=== PATIENT | male | born 1965 | race Caucasian/White ===

== ENCOUNTER 2017-10-28 01:42 | Emergency (ER) | payer MEDICAID ==
[~2017-10-28] VITALS: Ht 177.8 cm; Wt 136.1 kg
[~2017-10-28 01:42] MED LIST: ALBUTEROL SULFAT4 MG PO; ALBUTEROL SULFATE PO; ALDACTONE25 MG PO; ASPIR 8181 MG PO; CARDIZEM CD240 MG PO; CARVEDILOL12.5 MG PO; COREG6.25 MG PO; COZAAR 25 MG TA25 M2 PO; COZAAR 50 MG TA50 M2 PO; DIGOXIN250 MCG; DIGOXIN250 MCG PO; GLYBURIDE 2.52.5 MG PO; HYDROCODON-ACE1 EAC7 PO; HYDROCODONE-AP1 EAC6 PO; KLOR-CON 1010 MEQ PO; LASIX 20 MG TAB20 MG PO; LASIX 40 MG TAB40 M2 PO; LIPITOR10 MG PO; LISINOPRIL5 MG PO; METOLAZONE 5 MG5 MG PO; NEURONTIN 300300 M1 PO; PACERONE 200 M200 M1 PO; PREDNISONE 10 M10 MG PO; SENOKOT-S TABL1 EACH PO; SPIRONOLACTONE25 M1 PO; TOPROL XL100 MG PO; VENTOLIN HFA 1818 GM INH; VENTOLIN HFA 1818 GM PO; VENTOLIN HFA INH8 GM INH; VOSPIRE INH; XARELTO20 MG PO
[2017-10-28 02:08] LABS: HEMATOCRIT 47.7 % (42.0-52.0); HEMOGLOBIN 16.2 gm/dL (14.0-18.0); MCH 33.2 pg (26.0-34.0); MCV 97.5 fL (80.0-100.0); MPV 9.4 fl. (7.2-11.1); NUCLEATED RBCS 0 /100WBC; PLATELET COUNT* 225 thou/uL (150-400); RDW-CV 14.5 % (10.5-14.5)
[2017-10-28 02:18] LABS: CALCIUM 8.9 mg/dL (8.5-10.1); CREATININE 1.1 mg/dL (0.6-1.3); POTASSIUM 3.8 mmol/L (3.5-5.1)
[2017-10-28 02:22] LABS: TOTAL BILIRUBIN 0.3 mg/dL (<0.1-1.0)
[2017-10-28 03:10] LABS: ABSOLUTE BASOPHILS 0.1 thou/uL (0.0-0.2); ABSOLUTE EOSINOPHILS 0.5 thou/uL (0.0-0.7); ABSOLUTE LYMPHOCYTES 1.7 thou/uL (0.8-5.3); ABSOLUTE MONOCYTES 1.3 thou/uL (0.0-1.2); ABSOLUTE NEUTROPHILS 8.4 thou/uL (1.6-8.1); ANISOCYTOSIS Occasional; PLATELET ESTIMATE ADEQUATE
[2017-10-28 03:11] LABS: TOXIC GRANULATION 1+
[2017-10-28 03:23] LABS: URINE BILIRUBIN NEGATIVE (Negative); URINE BLOOD NEGATIVE (Negative); URINE CLARITY CLEAR; URINE COLOR YELLOW; URINE GLUCOSE-RANDOM 3+ (Negative); URINE KETONES NEGATIVE (Negative); URINE LEUKOCYTES-REFLEX NEGATIVE (Negative); URINE NITRITE-REFLEX NEGATIVE (Negative); URINE PROTEIN NEGATIVE (Negative); URINE SPECIFIC GRAVITY 1.015 (1.005-1.030); URINE UROBILINOGEN 0.2 E.U./dl (0.2-1.0)
[2017-10-28 03:31] LABS: AMP/METHAMP Negative (Negative); BARBITURATES Negative (Negative); BENZODIAZEPINES Negative (Negative); COCAINE Negative (Negative); METHADONE Negative (Negative); OPIATES Negative (Negative); PCP Negative (Negative); THC Negative (Negative)
[2017-10-28] MEDS ORDERED: NORCO 10-325 T1 EACH PO (04:31)
[2017-10-28 04:50] VITALS: BP 141/67
== END 2017-10-28 04:51 | disposition home or self-care (01) ==
LOC: M.ERS 01:42
PROVIDERS: Emergency Medicine
DX: K42.9 Umbilical hernia without obstruction or gangrene (principal); I48.91 Unspecified atrial fibrillation; I10 Essential (primary) hypertension; G47.30 Sleep apnea, unspecified; E78.5 Hyperlipidemia, unspecified; Z95.0 Presence of cardiac pacemaker; F17.210 Nicotine dependence, cigarettes, uncomplicated; Z88.8 Allergy status to other drugs, medicaments and biological substances

== ENCOUNTER 2017-10-28 17:51 | Inpatient (IN) | payer MEDICAID ==
[~2017-10-28] VITALS: Ht 177.8 cm; Wt 131.5 kg
[~2017-10-28 17:51] MED LIST changes: +NORCO 10-325 T1 EACH PO
[2017-10-28 18:05] VITALS: BP 109/70
[2017-10-28 18:44] LABS: ABSOLUTE BASOPHILS 0.2 thou/uL (0.0-0.2); ABSOLUTE EOSINOPHILS 0.4 thou/uL (0.0-0.7); ABSOLUTE LYMPHOCYTES 2.1 thou/uL (0.8-5.3); ABSOLUTE MONOCYTES 1.6 thou/uL (0.0-1.2); ABSOLUTE NEUTROPHILS 8.9 thou/uL (1.6-8.1); BASOPHILS 1.2 %; EOSINOPHILS 2.8 %; HEMATOCRIT 46.8 % (42.0-52.0); LYMPHOCYTES 16.3 %; MCH 33.3 pg (26.0-34.0); MCHC 34.2 g/dL (28.0-37.0); MCV 97.5 fL (80.0-100.0); MONOCYTES 12.5 %; MPV 9.3 fl. (7.2-11.1); NUCLEATED RBCS 0 /100WBC; PLATELET COUNT* 229 thou/uL (150-400); POLYS 67.2 %; RDW-CV 14.5 % (10.5-14.5); WBC 13.1 thou/uL (4.0-11.0)
[2017-10-28 18:50] LABS: CALCIUM 8.5 mg/dL (8.5-10.1); CREATININE 1.1 mg/dL (0.6-1.3)
[2017-10-28 18:55] LABS: ALBUMIN 2.9 g/dL (3.4-5.0); TOTAL BILIRUBIN 0.4 mg/dL (<0.1-1.0); TOTAL PROTEIN 6.8 g/dL (6.4-8.2)
[2017-10-28 19:41] VITALS: BP 121/89
[2017-10-28 19:50] VITALS: BP 156/92
--- NOTE | 2017-10-29 04:24 | NUR ---
PATIENT ARRIVED BY CART AT 1950 FROM ER IN STABLE CONDITION. ALERT AND ORIENTED X4. MEDICATED FOR PAIN X1 WITH PARTIAL EFFECT REPORTED. PHOTOS TAKEN OF SCROTAL ABCESS, DRESSING CHANGED, PACKING INTACT. VITALS STABLE. GIRL FRIEND AT BEDSIDE. WILL CONTINUE TO MONITOR.
[2017-10-29 08:00] VITALS: BP 146/87
--- NOTE | 2017-10-29 08:40 | NUR ---
Nutrition: consult for wound; pt admit with scrotal abcess, cellulitis. Pt reported good appetite, wants bigger portions. Wt fairly stable from 2017 wt hx 280-300 lb. Na and albumin lwo. Meds reviewed. Will order double portion of protein, fruits and vegetables. Low nutrition risk.
--- NOTE | 2017-10-29 14:18 | NUR ---
WOUND CARE NOTE: CONSULT RECEIVED FOR SCROTAL ABSCESS PATIENT IS S/P I&D OF A LEFT SCROTAL ABSCESS. AREA IS APPROXIMATELY 0.3X0.3X1.5. KERA-WOUND IS INDURATED. ABLE TO EXPRESS PURULENT/SANGUINOUS DRAINAGE. CLEANSED WITH WOUND CLEANSER, PATTED DRY. PACKED WITH 1/4" IODOFORM GAUZE AND APPLIED 4X4 TO COVER. PATIENT TOLERATED DRESSING CHANGE WELL. EDUCATED PATIENT ON NO TUB BATHS; KEEPING AREA CLEAN AND DRY, KEEPING THE WOUND PACKED/WICKED TO KEEP IT OPEN AND DRAINING; WASHING HANDS PRIOR TO DRESSING CHANGES; NUTRITION/HYDRATION. PATIENT COMMUNICATED UNDERSTANDING TO ALL. PATIENT CONCERNED BECAUSE WILL NOT BE ABLE TO CHANGE HIMSELF OR HAVE ANYONE AT HOME TO CHANGE. STATED HIS GIRLFRIEND MAY BE ABLE TO HELP. WOULD ENCOURAGE SPEAKING WITH GIRLFRIEND TO SEE IF THIS IS POSSIBLE FOR DRESSING CHANGES. IF SO, WOULD RECOMMEND TEACHING GIRLFRIEND DRESSING CHANGES FOR HOME. RECOMMEND ENCOURAGE GOOD NUTRITION/HYDRATION FOR WOUND HEALING TEACH GIRLFRIEND HOW TO PERFORM DRESSING CHANGES DAILY DRESSING CHANGES
[2017-10-29 16:07] VITALS: BP 143/77
--- NOTE | 2017-10-29 16:24 | NUR ---
SPOKE WITH PT. MOTHER AT BEDSIDE. HE GAVE PERMISSION FOR HER TO BE THERE FOR CONVERSATION. HE LIVES WITH HIS GIRLFRIEND. HE HAS A CPAP AT HOME BUT THE MASK IS BROKEN AND NOT CLEAN. ASKED IF HE KNEW THE NAME OF CO.IT CAME FROM. HE SAID HIS GIRLFRIEND DOES, TOLD HIM TO CALL CO.AND ASK THAT IT BE SERVICED. HE SAID HE HAS AND THEY NEVER HAVE COME OUT. HE SAID HE WILL NOT HAVE DAILY HELP TO CHANGE HIS DRESSING AT HOME. DISCUSSED HOME HEALTH. HE KNOWS HE WILL BE HERE UNTIL CULTURES RETURN. DISCUSSED DEPENDING WHAT CX SHOW DETERMINES WHAT ANTIBIOTIC HE WILL BE ON. HE UNDERSTOOD. DOES NOT WANT TO GIVE HIMSELF IVAB UNLESS ABSOLUTELY NECESSARY. CM WILL FOLLOW UP ON WEDNESDAY.
--- NOTE | 2017-10-29 17:27 | NUR ---
PATIENT REMAINED ALERT AND ORIENTED X'S 4. VITAL SIGNS AND SPO2 STABLE. IV INFILTRATED, NEW IV STARTED. WOUND CARE NURSE CHANGED DRESSING ON WOUND. TOLERATED DIET, NO NAUSEA AND VOMITING. SCD'S IN PLACE. VOIDED WITHOUT ISSUE. VANC TROUGH BEFORE 1900 DOSE. COMPLETED HOURLY ROUNDING, CALL LIGHT WITHIN REACH. WILL CONTINUE TO MONITOR.
[2017-10-29 21:30] VITALS: BP 118/77
--- NOTE | 2017-10-30 05:29 | NUR ---
PATIENT REMAINS ALERT AND ORIENTED X4 THROUGHOUT SHIFT. VITAL SIGNS STABLE ON ROOM AIR. IV PATENT IN THE RIGHT FOREARM SALINE LOCKED. ANTIBIOTICS INFUSED PER ORDERS. TOLERATING DIET. PAIN MANAGED WITH PO MEDICATION. DECLINED SCHEDULED PAIN MEDICATION SEVERAL TIMES. DRESSING TO LAILA CLEAN, DRY AND INTACT. DENIES NAUSEA. TRANSFERS AD MARTINA TO THE RESTOOM. RESTING COMFORTABLY THROUGHOUT NIGHT. REPOSITIONING SELF IN BED. HOURLY ROUNDING COMPLETE. BED IN LOW POSITION. CALL LIGHT WITHIN REACH. NURING WILL CONTINUE TO MONITOR.
[2017-10-30 09:00] VITALS: BP 118/70
[2017-10-30 16:00] VITALS: BP 130/82
--- NOTE | 2017-10-30 17:34 | NUR ---
ASSUMED CARE OF PATIENT AFTER MORNING REPORT. ALERT AND ORIENTED X4. ASSESSMENT COMPLETED AND CHARTED. VSS ON ROOM AIR. PATIENT HAS NO COMPLAINTS OF NAUSEA OR SOA. PAIN HAS BEEN MINIMAL AND MANAGED WITH MEDICATION. ANTIBIOTICS INFUSED ORDERED. DRESSING ON SCROTUM ASSESSED AND CHANGED. PATIENT HAD A BLOODY STOOL WHICH TOOK SOME EFFORT TO EXPEL, EXAMINED BY THIS NURSE AND ASSESSED BLEEDING FROM STRAINING TO EXPEL HARD STOOL. NO TOEHR COMPLAINTS AT THIS TIME. HOURLY ROUNDS MAINTAINED, CALL LIGHT IN REACH. NURSING WILL CONTINUE TO MONITOR.
[2017-10-30 20:25] VITALS: BP 143/77
--- NOTE | 2017-10-31 05:01 | NUR ---
PATIENT ALERT AND ORIENTED X 4. VITALS STABLE. RA. DRESSING C/D/I. UP INDEPENDENTLY IN ROOM. ANTIBIOTICS INFUSED PER ORDER. PAIN CONTROLLED WITH PO MEDICATION. SLEPT COMFORTABLY DURING THE NIGHT. HOURLY ROUNDS. NURSING WILL CONTINUE TO MONITOR.
[2017-10-31 06:08] LABS: ABSOLUTE BASOPHILS 0.1 thou/uL (0.0-0.2); ABSOLUTE EOSINOPHILS 0.4 thou/uL (0.0-0.7); ABSOLUTE LYMPHOCYTES 2.1 thou/uL (0.8-5.3); ABSOLUTE MONOCYTES 1.4 thou/uL (0.0-1.2); ABSOLUTE NEUTROPHILS 4.6 thou/uL (1.6-8.1); BASOPHILS 1.4 %; EOSINOPHILS 4.6 %; HEMATOCRIT 48.2 % (42.0-52.0); LYMPHOCYTES 24.1 %; MCHC 33.3 g/dL (28.0-37.0); MONOCYTES 15.9 %; MPV 9.5 fl. (7.2-11.1); NUCLEATED RBCS 0 /100WBC; PLATELET COUNT* 213 thou/uL (150-400); RBC 4.87 mil/uL (4.50-6.00); RDW-CV 14.6 % (10.5-14.5); WBC 8.5 thou/uL (4.0-11.0)
[2017-10-31 06:19] LABS: CALCIUM 8.7 mg/dL (8.5-10.1); POTASSIUM 4.5 mmol/L (3.5-5.1)
[2017-10-31 07:42] LABS: ESR (SEDRATE) 18 mm/hr (0-20)
[2017-10-31 08:54] VITALS: BP 124/83
--- NOTE | 2017-10-31 10:13 | NUR ---
PATIENTS IV IN THE RIGHT FOREARM INFILTRATED, NEW ACCESS STARTED IN THE LEFT FOREARM.
[2017-10-31 16:07] LABS: GLYCOHEMOGLOBIN (HGB A1C) 7.7 % (4.8-5.6)
[2017-10-31 16:28] VITALS: BP 103/67
--- NOTE | 2017-10-31 16:41 | NUR ---
ASSUMED CARE OF PATIENT AFTER MORNING REPORT AT 0720. ALERT AND ORIENTED X4. ASSESSMENT COMPLETED AND CHARTED. VSS ON ROOM AIR. PATIENT HAS HAD INCREASED COMPLAINTS OF ABDOMINAL PAIN THIS SHIFT. NO COMPLAINTS OF NAUSEA OR SOA. PATIENT SHOWERED THIS AFTERNOON. SCROTAL WOUND ASSESSED THIS AFTERNOON, NO PACKING NEEDED WOUND IS CLOSING. WOUND AND GENITAL AREA CLEANED WITH WOUND CLEANSER AND COVERED WITH GUAZE. ANTIBIOTICS INFUSED ORDERED. RESTING COMFORTABLY IN BED AT THIS TIME. HOURLY ROUNDS MAINTAINED, CALL LIGHT WITHIN REACH, NURSING WILL CONTINUE TO MONITOR.
[2017-10-31 20:55] VITALS: BP 97/58
--- NOTE | 2017-11-01 04:37 | NUR ---
PATIENT ALERT AND ORIENTED X 4. VITALS STABLE. RA. DENIED THE NEED FOR PAIN MEDICATION. DRESSING C/D/I. ANTIBIOTICS INFUSING PER ORDER. UP INDEPENDENTLY. SLEPT COMFORTABLY THROUGH THE NIGHT. HOURLY ROUNDS. NURSING WILL CONTINUE TO MONITOR.
--- NOTE | 2017-11-01 07:52 | CON ---
[address] [address] CONSULTATION Name: LEIGHTON NEWBERRY Room: [address] ADM IN .R.#: [id number] Admission: 10/28/17 Attend Phys: Misti Small Discharge: Date of : 65 Report #: [id number] THIS REPORT FOR: //name// CC: SYLVIA physician/PCP Bhanu Buernostro DATE OF SERVICE: 10/29/2017 INFECTIOUS DISEASE CONSULTATION ATTENDING PHYSICIAN: Dr. Buenrostro. REASON FOR EVALUATION: Scrotal abscess. HISTORY OF PRESENT ILLNESS: Chart reviewed, patient examined. This is a 51-year-old who was admitted with a site on his scrotum, it was a hard, believes he pulled off a tick. He subsequently felt maybe there was infectious complication. He was evaluated, found to have a scrotal abscess, underwent debridement of the site. There is a culture pending. He was empirically started on vancomycin. He does admit to some recent fevers. He has profound sweats. I think he has predated the scrotal issue. He does have difficulty breathing at times, significant GI related complaints, although he has a large ventral hernia. He has had some weight variation, his weight approaching 300 pounds at this point. He is not encephalopathic. ALLERGIES: LISINOPRIL. CURRENT MEDICATIONS: Include metolazone, spironolactone, aspirin, metoprolol, hydrocodone, furosemide, vancomycin, nicotine. PAST MEDICAL HISTORY: Sleep apnea, utilizes CPAP; hypertension; hyperlipidemia; fatty liver; history of renal lithiasis; atrial fibrillation; tonsillectomy. SOCIAL HISTORY: Smokes a pack of cigarettes a day. No ethanol. No illicit drug use. FAMILY HISTORY: Noncontributory. REVIEW OF SYSTEMS: As above. PHYSICAL EXAMINATION: GENERAL: He is pleasant, alert, cooperative. He is in moderate distress secondary to the scrotal discomfort. VITAL SIGNS: Temperature is 97.7, pulse 70, respirations 16, blood pressure 146/87. SKIN: Warm, [place] [address] CONSULTATION Name: LEIGHTON NEWBERRY Room: [address] IN [facility]#: [id number] Admission: 10/28/17 Attend Phys: Misti Small Discharge: Date of : 65 Report #: [id number] HEENT: Otherwise, unremarkable. NECK: Supple. LUNGS: Clear to auscultation. HEART: Regular. ABDOMEN: Soft, has a large ventral hernia, protrudes to a great degree into perineal area. There is an ABD pad over the site of the previous debridement of the scrotal abscess. There is some moderate degree of inflammation, quite tender. There is some bloody drainage. LABORATORY DATA: Electrolytes: Sodium 133, potassium 4.0, chloride 100, bicarbonate 28, BUN and creatinine 12 and 1.1, glucose of 251. AST of 42, ALT of 70, albumin of 2.9, total protein of 6.8, estimated GFR of 71. CBC: White count 13.1, H and H of 16.0 and 46.8, and platelets of 229. CT abdomen and pelvis showed a large ventral umbilical hernia measuring 20 cm in diameter, large number of small bowel loops, although no evidence of obstruction or compromise of the bowel. Urinalysis is unremarkable. Lactic acid is 2.0. ASSESSMENT: Scrotal abscess. We will continue the vancomycin. Await culture results. We will go ahead and add a little bit of gram-negative coverage as well given the likelihood of polymicrobial etiology in this setting. <ELECTRONICALLY SIGNED> By: Steven Felix MD 11/01/17 0752 1020 [id number] Felix MD /nt
[2017-11-01 09:00] VITALS: BP 121/68
--- NOTE | 2017-11-01 11:35 | NUR ---
PATIENT AND DAUGHTER GIVEN DISHCARGE INSTRUCTIONS. VERBALIZED UNDERSTADING IN REGARDS TO FOLLOW UP APPOINTMENTS AND MEDICATIONS. PATIENT DENIED THE NEED FOR HOME HEALTH. DISCHARGED TO HOME WITH ALL BELONGINGS. ESCORTED OFF NURSING UNIT VIA WHEELCHAIR TO EXIT WITH NURSING STAFF.
[2017-11-01 16:00] VITALS: BP 107/57
--- NOTE | 2017-11-01 17:50 | NUR ---
PATIENT HAS BEEN A/O X 4 THIS SHIFT. MEDICATED FOR SCROTAL/ABDOMINAL PAIN X 1 TODAY WITH GOOD RELIEF. IV ANTIBIOTICS INFUSED ORDERED. PATIENT UP AD MARTINA IN ROOM. DRESSING CHANGED TO LEFT SIDE OF SCROTUM, UNABLE TO PACK WOUND WOUND IS CLOSING. CALLED AND SPOKE WITH MICRO REGARDING CULTURES, STATED GRAM STAIN IS BEING PROCESSED AND PRELIMINARY RESULTS SHOULD BE BACK THIS AFTERNOON, HAVE NOT SEE RESULTS OF YET. BLOOD SUGARS CHARTED. VOIDING PER URINAL. HOURLY ROUNDING COMPLETED. CALL LIGHT WITHIN REACH. WILL CONTINUE WITH PLAN OF CARE.
[2017-11-01 21:00] VITALS: BP 127/72
--- NOTE | 2017-11-02 05:18 | NUR ---
PATIENT REMAINS ALERT AND ORIENTED X4 THROUGHOUT SHIFT. VITAL SIGNS STABLE ON ROOM AIR. IV PATENT IN THE LEFT FOREARM SALINE LOCKED. INFUSED ANTIBIOTICS PER ORDERS. PATIENT EDUCATED ON BLOOD GLUCOSE LEVELS AFTER ASKING FOR SEVERAL SNACKS. DRESSING TO SCROTUM CLEAN, DRY AND INTACT. TRANSFERS AD MARTINA TO THE RESTROOM. PATIENT HAS PREVIOUSLY BEEN TOLD HE CAN GO OUTSIDE. PATIENT EDUCATED ON SMOKING POLICY. PATIENT STATED HE IS GOING OUT FOR FRESH AIR. DECLINED TAKING A SHOWER OR CHANGING BED LINEN. REPOSITIONING SELF IN BED. SPOUSE AT BEDSIDE THROUGHOUT SHIFT. DENIES PAIN OR NAUSEA. ENCOURAGED TO REPOSITION AND DEEP BREATH AND COUGH. HOURLY ROUNDING COMPLETE. CALL LIGHT WITHIN REACH. NURSING WILL CONTINUE TO [facility].
[2017-11-02 08:09] VITALS: BP 117/76
--- NOTE | 2017-11-02 08:14 | NUR ---
UPON ENTERING PT ROOM FOR VS AT THIS TIME THE PT REPORTED THAT HE HIT HIMSELF IN THE MOUTH WITH THE BED REMOTE AND IT KNOCKED OUT HIS TOP FRONT TOOTH. PT STATES HE HAD A MOUTH INJURY PRIOR TO THIS HOSPITAL STAY THAT COULD HAVE MADE THE TOOTH LOOSE. PHYSICIAN PAGED. VSS AT THIS TIME, PAIN IN MOUTH 10/19 PT REPORTS MORE FOCUSED ON LIP RATHER DENTITION.
[2017-11-02] MEDS ORDERED: NORCO 10-325 T1 EACH PO (10:47)
[2017-11-02] MEDS ORDERED: GLUCOPHAGE500 MG PO (11:07)
[2017-11-02 11:35] VITALS: BP 117/76
--- NOTE | 2017-11-02 12:19 | NUR ---
PT.TO DISCHARGE HOME TODAY. BLOOD SUGARS HAVE BEEN HIGH HERE. HE WILL NEED TO FOLLOW UP AND GET A PCP. GIRLFRIEND SAID HIS MEDICARE GOES INTO EFFECT ON NOV.10. GAVE HIM [facility]S OWNED PRACTICES. TOLD HIM MATT SHEEHAN DNP,ARC WELDING MACHINE OPERATOR IS PROFICIENT IN DIABETES MANAGEMENT AND EDUCATION. ALSO GAVE HIM [employer] RESOURCES AND DRUG DISCOUNT CARD. GIRLFRIEND ALSO STATED WHEN MEDICARE GOES INTO EFFECT, HE QUALIFIES FOR FINANCIAL ASSIST AND WILL GET HIS MEDS AT NO CHARGE. PT.ALSO WANTED PT. ADVOCATES PHONE NUMBER TO CALL HER TO GIVE COMPLIMENTS ON CERTAIN RNS AND ASPECTS OF HIS CARE.
--- NOTE | 2017-11-02 14:06 | NUR ---
PT D/C COMPLETE. PHYSICIAN NOTIFIED REGARDING TOOTH FALLING OUT DUE TO PT HITTING SELF IN MOUTH WITH CALL LIGHT, NO NEW ORDERS AT THIS TIME, PT SHOULD FOLLOW UP WITH OUTPATIENT DENTIST. PT VSS AT THIS TIME. PT HAS ABD BINDER IN PLACE DUE TO HERNIA. PHOTOS TAKEN AND PLACED IN CHART. PT PROVIDED WITH 3 RX AT THIS TIME. CASE MANAGEMENT GAVE LIST OF PROVIDERS TO PT TO FOLLOW UP WITH THAT ARE GOOD WITH DIABETES CARE. PT AND SIGNIFICANT OTHER VERBALIZED UNDERSTANDING OF CARE AT THIS TIME AND NO NEW CONCERNS AT THIS TIME.
[2017-11-02 14:22] VITALS: BP 118/78
== END 2017-11-02 14:49 | disposition home or self-care (01) | DRG 728 ==
LOC: M.ERS 17:51 → M.TBA-ER 18:35 → M.ORTHSURG 18:35
PROVIDERS: Emergency Medicine; Internal Medicine Infectious Disease; ADMIT Internal Medicine
PROC: 0V95XZZ Drainage of Scrotum, External Approach (ICD-10-PCS; principal; 2017-10-28)
DX: N49.2 Inflammatory disorders of scrotum (principal); I48.91 Unspecified atrial fibrillation; I10 Essential (primary) hypertension; E78.5 Hyperlipidemia, unspecified; F17.210 Nicotine dependence, cigarettes, uncomplicated; R73.9 Hyperglycemia, unspecified; K59.00 Constipation, unspecified; G47.30 Sleep apnea, unspecified; Z95.0 Presence of cardiac pacemaker; Z87.442 Personal history of urinary calculi; Z79.899 Other long term (current) drug therapy; Z88.8 Allergy status to other drugs, medicaments and biological substances; Z91.09 Other allergy status, other than to drugs and biological substances; Z79.82 Long term (current) use of aspirin; Z99.81 Dependence on supplemental oxygen; Z84.1 Family history of disorders of kidney and ureter

== ENCOUNTER → 2018-06-27 | Outpatient (CLI) | payer OTHER, MEDICAID ==
[~2018-06-27] MED LIST changes: +GLUCOPHAGE500 MG PO
--- NOTE | 2018-06-27 17:24 | 2DMMODE ---
[place] [address] 2 D/M-MODE ECHOCARDIOGRAM Name: LEIGHTON NEWBERRY Room: [facility]#: [id number] Admission: 06/27/18 Attend Phys: Abbe Garcia, Discharge: Date of : 65 Date of Service: 06/27/18 1724 Report #: [id number] THIS REPORT FOR: //name// APPROVED REPORT Study performed: 06/27/2018 11:15:08 EXAM: Comprehensive 2D, Doppler, and color-flow Echocardiogram Patient Location: Out-Patient BSA: 2.40 HR: 72 bpm BP: 144/80 mmHg Other Information Study Quality: Fair Indications Congestive Heart Failure 2D Dimensions IVSd: 11.21 (7-11mm) LVOT Diam: 20.67 (18-24mm) LVDd: 52.74 mm PWd: 10.46 (7-11mm) Ascending Ao: 34.59 (22-36mm) LVDs: 35.13 (25-40mm) Aortic Root: 28.07 mm Volumes Left Atrial Volume (Systole) LA ESV Index: 23.30 mL/m2 Aortic Valve AoV Peak Jcarlos.: 1.41 m/s AO Peak Gr.: 7.97 mmHg LVOT Max P.13 mmHg AO Mean Gr.: 4.06 mmHg LVOT Mean P.83 mmHg LVOT Max V: 1.51 m/s AO V2 VTI: 20.72 cm LVOT Mean V: 0.87 m/s DEREJE (VTI): 3.78 cm2 LVOT V1 VTI: 23.37 cm Mitral Valve MV Decel. Time: 194.76 ms MV E Max Jcarlos.: 1.10 m/s MV PHT: 56.48 ms MVA (PHT): 3.90 [place]2 [place] [address] 2 D/M-MODE ECHOCARDIOGRAM Name: LEIGHTON NEWBERRY Room: [facility]#: [id number] Admission: 06/27/18 Attend Phys: Abbe Garcia, Discharge: Date of : 65 Date of Service: 06/27/18 1724 Report #: [id number] TDI E/Lateral E': 10.00 E/Medial E': 8.46 Medial E' Jcarlos.: 0.13 m/s Lateral E' Jcarlos.: 0.11 m/s Pulmonary Valve PV Peak Jcarlos.: 1.01 m/s PV Peak Gr.: 4.04 mmHg Left Ventricle The left ventricle is normal size. There is normal LV segmental wall motion. There is normal left ventricular wall thickness. Left ventricular systolic function is normal. LVEF is 60-65%. This study is not technically sufficient to allow evaluation of the LV diastolic function due to atrial flutter. Right Ventricle The right ventricle is normal size. The right ventricular systolic function is normal. Pacemaker lead is present in the right ventricle. Atria Left atrium is mildly dilated. Right atrium is mildly dilated. Aortic Valve The aortic valve is normal in structure. No aortic regurgitation is present. There is no aortic valvular stenosis. Mitral Valve The mitral valve is normal in structure. There is no mitral valve regurgitation noted. No evidence of mitral valve stenosis. Tricuspid Valve The tricuspid valve is normal in structure. There is no tricuspid valve regurgitation noted. Pulmonic Valve The pulmonary valve is normal in structure. There is no pulmonic valvular regurgitation. Great Vessels The aortic root is normal in size. IVC is normal in size and collapses >50% with inspiration. Pericardium There is no [place] [address] 2 D/M-MODE ECHOCARDIOGRAM Name: LEIGHTON NEWBERRY [id number] Admission: 06/27/18 Attend Phys: Abbe Garcia, Discharge: Date of : 65 Date of Service: 06/27/18 1724 Report #: [id number] <Conclusion> The left ventricle is normal size. There is normal left ventricular wall thickness. Left ventricular systolic function is normal. LVEF is 60-65%. This study is not technically sufficient to allow evaluation of the LV diastolic function due to atrial flutter. Pacemaker lead is present in the right ventricle. Left atrium is mildly dilated. Right atrium is mildly dilated. IVC is normal in size and collapses >50% with inspiration. <ELECTRONICALLY SIGNED> By: Abbe Garcia MD, FACC 06/27/18 172 23 23 Abbe Garcia MD, FACC /INF
== END ==
LOC: M.CRD 11:00
DX: I50.42 Chronic combined systolic (congestive) and diastolic (congestive) heart failure (principal); Z88.8 Allergy status to other drugs, medicaments and biological substances

== ENCOUNTER 2019-07-09 17:49 | Emergency (ER) | payer OTHER ==
[~2019-07-09] VITALS: Ht 177.8 cm; Wt 117.9 kg
[2019-07-09] MEDS ORDERED: XARELTO20 MG PO (18:19)
[2019-07-09 18:29] LABS: URINE BILIRUBIN NEGATIVE (Negative); URINE BLOOD NEGATIVE (Negative); URINE CLARITY CLEAR; URINE COLOR YELLOW; URINE GLUCOSE-RANDOM 3+ (Negative); URINE KETONES NEGATIVE (Negative); URINE LEUKOCYTES-REFLEX NEGATIVE (Negative); URINE NITRITE-REFLEX NEGATIVE (Negative); URINE PROTEIN NEGATIVE (Negative); URINE UROBILINOGEN 0.2 E.U./dl (0.2-1.0)
[2019-07-09 18:33] LABS: ABSOLUTE BASOPHILS 0.1 thou/uL (0.0-0.2); ABSOLUTE EOSINOPHILS 0.2 thou/uL (0.0-0.7); ABSOLUTE LYMPHOCYTES 2.2 thou/uL (0.8-5.3); ABSOLUTE MONOCYTES 1.2 thou/uL (0.0-1.2); ABSOLUTE NEUTROPHILS 6.1 thou/uL (1.6-8.1); BASOPHILS 1.4 %; EOSINOPHILS 2.1 %; HEMATOCRIT 53.6 % (42.0-52.0); HEMOGLOBIN 18.2 gm/dL (14.0-18.0); LYMPHOCYTES 22.1 %; MCH 31.9 pg (26.0-34.0); MCV 93.8 fL (80.0-100.0); MONOCYTES 12.1 %; MPV 9.8 fl. (7.2-11.1); NUCLEATED RBCS 0 /100WBC; PLATELET COUNT* 218 thou/uL (150-400); POLYS 62.3 %; RBC 5.71 mil/uL (4.50-6.00); RDW-CV 14.1 % (10.5-14.5); WBC 9.9 thou/uL (4.0-11.0)
[2019-07-09 18:51] LABS: CALCIUM 9.1 mg/dL (8.5-10.1); CREATININE 1.4 mg/dL (0.6-1.3); POTASSIUM 4.6 mmol/L (3.5-5.1)
[2019-07-09 18:53] LABS: ALBUMIN 3.3 g/dL (3.4-5.0); TOTAL BILIRUBIN 0.4 mg/dL (<0.1-1.0); TOTAL PROTEIN 7.4 g/dL (6.4-8.2)
[2019-07-09] MEDS ORDERED: GLUCOTROL5 MG PO (19:28)
[2019-07-09] MEDS ORDERED: GLUCOPHAGE850 MG PO (19:28)
[2019-07-09 19:46] VITALS: BP 136/77
== END 2019-07-09 19:51 | disposition home or self-care (01) ==
LOC: M.ERS 17:49
PROVIDERS: Emergency Medicine Emergency Medical Services
DX: E11.9 Type 2 diabetes mellitus without complications (principal); R55 Syncope and collapse; I10 Essential (primary) hypertension; G47.30 Sleep apnea, unspecified; E78.5 Hyperlipidemia, unspecified; F17.210 Nicotine dependence, cigarettes, uncomplicated; Z88.8 Allergy status to other drugs, medicaments and biological substances; Z87.442 Personal history of urinary calculi; W18.39XA Other fall on same level, initial encounter; Y93.89 Activity, other specified; Y92.89 Other specified places as the place of occurrence of the external cause; Y99.8 Other external cause status

== ENCOUNTER 2019-12-19 08:45 | Inpatient (IN) | payer OTHER ==
[~2019-12-19] VITALS: Ht 177.8 cm; Wt 111.6 kg
[~2019-12-19 08:45] MED LIST changes: +COZAAR 50 MG TA50 M1 PO; -COZAAR 50 MG TA50 M2 PO; +GLUCOPHAGE850 MG PO; +GLUCOTROL5 MG PO
[2019-12-19 08:48] VITALS: BP 101/70
[2019-12-19 09:17] LABS: BE 0.4 mmol/L (-2 to +3); PCO2 44.1 mmHg (35.0-45.0); PO2 78.1 mmHg (75.0-100.0); pH 7.386 (7.340-7.450)
[2019-12-19 09:29] LABS: ABSOLUTE BASOPHILS 0.1 thou/uL (0.0-0.2); ABSOLUTE EOSINOPHILS 0.3 thou/uL (0.0-0.7); ABSOLUTE LYMPHOCYTES 2.5 thou/uL (0.8-5.3); ABSOLUTE MONOCYTES 1.2 thou/uL (0.0-1.2); ABSOLUTE NEUTROPHILS 6.5 thou/uL (1.6-8.1); BASOPHILS 1.2 %; EOSINOPHILS 2.9 %; HEMATOCRIT 55.2 % (42.0-52.0); HEMOGLOBIN 19.2 gm/dL (14.0-18.0); LYMPHOCYTES 23.1 %; MCH 31.7 pg (26.0-34.0); MCHC 34.7 g/dL (28.0-37.0); MCV 91.3 fL (80.0-100.0); MONOCYTES 11.7 %; MPV 9.4 fl. (7.2-11.1); NUCLEATED RBCS 0 /100WBC; PLATELET COUNT* 254 thou/uL (150-400); POLYS 61.1 %; RBC 6.05 mil/uL (4.50-6.00); RDW-CV 14.4 % (10.5-14.5); WBC 10.7 thou/uL (4.0-11.0)
[2019-12-19 09:36] LABS: CALCIUM 9.4 mg/dL (8.5-10.1); CREATININE 1.3 mg/dL (0.6-1.3); INR 1.4; POTASSIUM 3.6 mmol/L (3.5-5.1)
[2019-12-19 09:46] LABS: ALBUMIN 3.4 g/dL (3.4-5.0); MAGNESIUM 1.7 mg/dL (1.8-2.4); TOTAL BILIRUBIN 0.6 mg/dL (<0.1-1.0); TOTAL PROTEIN 7.5 g/dL (6.4-8.2)
[2019-12-19 12:36] VITALS: BP 111/70
--- NOTE | 2019-12-19 14:34 | EKG ---
[place] [address] ELECTROCARDIOGRAM REPORT Name: LEIGHTON NEWBERRY Room: [address] ADM IN [facility]#: [id number] Admission: 12/19/19 Attend Phys: Frankie Sherman, Discharge: Date of : 65 Date of Service: 12/19/19917 Report #: [id number] THIS REPORT FOR: //name// [facility] ED Test Date: 2019-12-19 Test Time: 09:18:29 Pat Name: LEIGHTON NEWBERRY Department: Room: [facility] Gender: M Bulk Filler: : 1965 Requested By: Chyna Rose Order Number: [id number] MD: Abbe Garcia Measurements Intervals [place] Rate: 70 P: 0 ME: 63 QRS: 203 QRSD: 178 T: 70 QT: 453 QTc: 489 Interpretive Statements Ventricular-paced complexes No further analysis attempted due to paced rhythm Baseline wander in lead(s) V2,V3 Compared to ECG 04/02/2017 13:58:38 Atrial fibrillation no longer present ST (T wave) deviation no longer present Electronically Signed On 12-19-2019 14:34:15 CDT by Abbe Garcia [email or web address] <ELECTRONICALLY SIGNED> By: Abbe Garcia MD, FACC 12/19/19 1434 7 7 Abbe Garcia MD, [facility] /EPI
[2019-12-19 16:06] VITALS: BP 113/69
[2019-12-19 20:42] VITALS: BP 113/56
[2019-12-20] VITALS (8 sets, daily range): BP systolic 86–136; BP diastolic 43–83
[2019-12-20 01:01] LABS: URINE BILIRUBIN NEGATIVE (Negative); URINE BLOOD NEGATIVE (Negative); URINE CLARITY CLEAR; URINE COLOR YELLOW; URINE GLUCOSE-RANDOM 3+ (Negative); URINE KETONES NEGATIVE (Negative); URINE LEUKOCYTES-REFLEX NEGATIVE (Negative); URINE NITRITE-REFLEX NEGATIVE (Negative); URINE PROTEIN NEGATIVE (Negative)
[2019-12-20 04:53] LABS: HEMATOCRIT 52.9 % (42.0-52.0); HEMOGLOBIN 18.5 gm/dL (14.0-18.0); MCH 31.6 pg (26.0-34.0); MCHC 34.9 g/dL (28.0-37.0); MCV 90.6 fL (80.0-100.0); RBC 5.84 mil/uL (4.50-6.00); RDW-CV 14.1 % (10.5-14.5); WBC 12.3 thou/uL (4.0-11.0)
[2019-12-20 05:11] LABS: CALCIUM 8.7 mg/dL (8.5-10.1); CREATININE 1.1 mg/dL (0.6-1.3); MAGNESIUM 1.8 mg/dL (1.8-2.4); POTASSIUM 3.6 mmol/L (3.5-5.1); TOTAL BILIRUBIN 0.6 mg/dL (<0.1-1.0); TOTAL PROTEIN 6.8 g/dL (6.4-8.2)
--- NOTE | 2019-12-20 05:27 | NUR ---
PT IS ABLE TO COMMUNICATE HIS NEEDS TO STAFF EFFECTIVELY; HE HAS BEEN VERY SLEEPY OVERNIGHT, BUT IS AROUSABLE AND ANSWERS QUESTIONS APPROPRIATELY. HE HAS DENIED THE NEED FOR PAIN MEDICAITON UP TO THIS TIME. Q4HR ACCUCHECKS MAINTIANED OVERNIGHT; PT NOT REALLY COMPLIANT WITH CURTAILING CARB INTAKE.
[2019-12-20 07:09] LABS: GLYCOHEMOGLOBIN (HGB A1C) 11.5 % (4.8-5.6)
--- NOTE | 2019-12-20 14:38 | NUR ---
Pt is A&O. Resides at home with his girlfriend. Pt states that he is normally independent, because sometimes he gets weak and his GF has to assist him. Pt uses a cane for mobility. Pt has a cpap. No hx of HH or SNF. Pt's goal is to return home at de and Pt states that he wants HH. Following.
--- NOTE | 2019-12-20 15:23 | 2DMMODE ---
[place] [address] 2 D/M-MODE ECHOCARDIOGRAM Name: LEIGHTON NEWBERRY Room: [address] IN [facility]#: [id number] Admission: 12/19/19 Attend Phys: Frankie Sherman, Discharge: Date of : 65 Date of Service: 12/20/19 1523 Report #: [id number] THIS REPORT FOR: cc: FAM - No family physician/PCP FAM - No family physician/PCP Arpan Purvis MD [facility] ~ ADDENDUM APPROVED REPORT Study performed: 12/20/2019 10:19:51 EXAM: Comprehensive 2D, Doppler, and color-flow Echocardiogram Patient Location: In-Patient Room #: [facility] Status: routine BSA: 2.33 HR: 76 bpm BP: 106/46 mmHg Rhythm: NSR Other Information Study Quality: Fair Indications Syncope 2D Dimensions IVSd: 14.72 (7-11mm) LVOT Diam: 21.75 (18-24mm) LVDd: 51.70 mm PWd: 13.40 (7-11mm) Ascending Ao: 30.05 (22-36mm) LVDs: 29.13 (25-40mm) Aortic Root: 36.08 mm Volumes Left Atrial Volume (Systole) LA ESV Index: 31.30 mL/m2 Aortic Valve AoV Peak Jcarlos.: 1.13 m/s AO Peak Gr.: 5.11 mmHg LVOT Max P.54 mmHg AO Mean Gr.: 2.86 mmHg LVOT Mean P.74 mmHg LVOT Max V: 0.94 m/s AO V2 VTI: 17.54 cm LVOT Mean V: 0.60 m/s DEREJE (VTI): 2.92 cm2 LVOT V1 VTI: 13.78 [place] [address] 2 D/M-MODE ECHOCARDIOGRAM Name: LEIGHTON NEWBERRY Room: [address] IN [facility]#: [id number] Admission: 12/19/19 Attend Phys: Frankie Sherman, Discharge: Date of : 65 Date of Service: 12/20/19 1523 Report #: [id number] Mitral Valve MV Decel. Time: 227.91 ms MV PHT: 66.09 ms MVA (PHT): 3.33 cm2 TDI Medial E' Jcarlos.: 0.11 m/s Lateral E' Jcarlos.: 0.14 m/s Pulmonary Valve PV Peak Jcarlos.: 0.82 m/s PV Peak Gr.: 2.70 mmHg Left Ventricle The left ventricle is normal size. There is normal LV segmental wall motion. Mild concentric left ventricular hypertrophy. Left ventricular systolic function is normal. The left ventricular ejection fraction is within the normal range. LVEF is 60-65%. This study is not technically sufficient to allow evaluation of the LV diastolic function. Right Ventricle The right ventricle is normal size. The right ventricular systolic function is normal. Pacemaker lead is present in the right ventricle. Atria Left atrium is mildly dilated. The right atrium size is normal. Aortic Valve The aortic valve is normal in structure. No aortic regurgitation is present. There is no aortic valvular stenosis. Mitral Valve The mitral valve is normal in structure. There is no mitral valve regurgitation noted. No evidence of mitral valve stenosis. Tricuspid Valve The tricuspid valve is normal in structure. Trace tricuspid regurgitation. Unable to assess PA pressure. Pulmonic Valve Pulmonic valve is not well visualized. There is no pulmonic valvular regurgitation. Great Vessels The aortic root is normal in size. IVC [place] [address] 2 D/M-MODE ECHOCARDIOGRAM Name: LEIGHTON NEWBERRY Room: [address] IN [facility]#: [id number] Admission: 12/19/19 Attend Phys: Frankie Sherman, Discharge: Date of : 65 Date of Service: 12/20/19 1523 Report #: [id number] collapses >50% with inspiration. Pericardium There is no pericardial effusion. <Conclusion> LVEF is 60-65%. Mild concentric left ventricular hypertrophy. Pacemaker lead is present in the right ventricle. Left atrium is mildly dilated. <ELECTRONICALLY SIGNED> By: Arpan Purvis MD, [facility] 12/20/19 1523 1523 1523 Arpan Purvis MD, FAC /INF
--- NOTE | 2019-12-20 19:04 | NUR ---
PT ALERT AND ORIENTED VERY SLEEPY T/O DAY IF NOT EATING PT IS ASLEEP GF HERE TODAY AND SLEPT WELL BLOOD SUGARS REMAIN ELEVATED CONT WITH DOUBLE PORTIONS AND STILL ASKS FOR FOOD DENIES ANY PAIN UP AD MARTINA HERNIA TO ENTIRE ABD MAKES IT LOOK ROUND AND DISTENDED CALL LIGHT IN REACH
[2019-12-21] VITALS: BP 106/44
[2019-12-21 04:00] VITALS: BP 110/56
[2019-12-21 04:35] LABS: HEMATOCRIT 51.3 % (42.0-52.0); HEMOGLOBIN 17.5 gm/dL (14.0-18.0); MCH 31.1 pg (26.0-34.0); MCHC 34.2 g/dL (28.0-37.0); MCV 91.1 fL (80.0-100.0); MPV 8.9 fl. (7.2-11.1); RBC 5.63 mil/uL (4.50-6.00); RDW-CV 14.2 % (10.5-14.5); WBC 9.3 thou/uL (4.0-11.0)
[2019-12-21 04:46] LABS: CALCIUM 8.5 mg/dL (8.5-10.1); MAGNESIUM 1.9 mg/dL (1.8-2.4); POTASSIUM 3.8 mmol/L (3.5-5.1)
--- NOTE | 2019-12-21 06:22 | NUR ---
PATIENT NOT PROGRESSING TOWARDS GOALS: PATIENT IS NON-COMPLIANT WITH DIET INSTRUCTIONS AND REQUESTING SNACKS THROUGHOUT THE SHIFT DESPITE EDUCATION PROVIDED ON BLOOD SUGAR CONTROL. PATIENT SLEEPING ON AND OFF. DENIES PAIN. CALL LIGHT WITHIN REACH
[2019-12-21 08:00] VITALS: BP 119/67
[2019-12-21] MEDS ORDERED: TRADJENTA5 MG PO (10:10)
[2019-12-21] MEDS ORDERED: PIOGLITAZONE15 MG PO (10:10)
[2019-12-21] MEDS ORDERED: GLUCOTROL5 MG PO (10:10)
--- NOTE | 2019-12-21 10:59 | NUR ---
CM spoke with Pt and GF in room, plan is home at [place], per PT's GF, HH is not needed. Pt's PCP is Dr Kaiser. RICKY updated
[2019-12-21 11:57] VITALS: BP 145/55
[2019-12-21 13:24] VITALS: BP 145/55
--- NOTE | 2019-12-21 18:58 | NUR ---
PT. AOX4, VSS, DENIES PAIN, CALL LIGHT AND PERSONAL BELONGINGS PLACED WITHIN REACH. DC ORDERS RECEIVED. DC SUMMARY PROVIDED. DIET, ACTIVITY AND MED LIST EXPLAINED TO SPOUSE PT. REFUSED TO PARTICIPATE. PT. LEFT AMBULATORY, WHEELCHAIR OFFERED BUT REFUSED. PT. CARE ALSO PROVIDED BY CLINICAL INSTRUCTOR JANINE AND STUDENT NURSE MARIJA.
== END 2019-12-21 13:40 | disposition home or self-care (01) | DRG 638 ==
LOC: M.ERS 08:45 → M.TBA-ER 12:01 → M.2W 12:01
PROVIDERS: Internal Medicine; Personal Emergency Response Attendant; ADMIT Internal Medicine; ATTEND Internal Medicine
DX: E11.00 Type 2 diabetes mellitus with hyperosmolarity without nonketotic hyperglycemic-hyperosmolar coma (NKHHC) (principal); I48.21 Permanent atrial fibrillation; D68.69 Other thrombophilia; E11.65 Type 2 diabetes mellitus with hyperglycemia; G47.33 Obstructive sleep apnea (adult) (pediatric); K76.0 Fatty (change of) liver, not elsewhere classified; T38.3X5A Adverse effect of insulin and oral hypoglycemic [antidiabetic] drugs, initial encounter; Z20.828 Contact with and (suspected) exposure to other viral communicable diseases; I10 Essential (primary) hypertension; E78.5 Hyperlipidemia, unspecified; F17.210 Nicotine dependence, cigarettes, uncomplicated; Z95.0 Presence of cardiac pacemaker; Z87.442 Personal history of urinary calculi; Z88.8 Allergy status to other drugs, medicaments and biological substances; Z91.19 Patient's noncompliance with other medical treatment and regimen; Y92.89 Other specified places as the place of occurrence of the external cause; Z91.14 Patient's other noncompliance with medication regimen; Z79.82 Long term (current) use of aspirin; Z79.899 Other long term (current) drug therapy